=== PATIENT | male | born 1965 | race Caucasian/White ===

== ENCOUNTER → 2017-04-16 | Outpatient (CLI) | payer OTHER ==
[2017-04-16 08:59] LABS: CHLORIDE,CL 107 mmol/L (98-110); SODIUM,NA 142 mmol/L (136-146)
== END ==
LOC: MW.CHRC 08:15
PROVIDERS: ATTEND Family Medicine
DX: R73.03 Prediabetes (principal); E78.00 Pure hypercholesterolemia, unspecified
CPT/HCPCS: 36415; 80053; 80061; 83036

== ENCOUNTER 2018-04-16 10:52 | Day surgery (SDC) | payer OTHER ==
[~2018-04-16 10:52] MED LIST: Lactated Ringers 1,000 ML IV SCH; Lidocaine 2% 5 ML SDV ONE; Midazolam 1 MG/ML 2 ML SDV ONE; Propofol 200 MG/20 ML SDV ONE; fentaNYL 100 MCG/2 ML SDV ONE
--- NOTE | 2018-04-16 11:31 | PCM.PREANE ---
Preanesthetic Assessment - Anesthesia/Transfusion/Family Hx Anesthesia History: Prior Anesthesia Without Reaction Family History of Anesthesia Reaction: No Transfusion History: Unknown - Review of Systems General: No Symptoms Pulmonary: No Symptoms Cardiovascular: No Symptoms Neurological: No Symptoms Other: Reports: None - Physical Assessment NPO Status Date: 04/15/18 O2 Sat by Pulse Oximetry: 96 Respiratory Rate: 16 Vital Signs: Last Vital Signs Temp 36.2 C 04/16/18 11:13 Pulse 70 04/16/18 11:13 Resp 16 04/16/18 11:13 BP 133/86 04/16/18 11:13 Pulse Ox 96 04/16/18 11:13 Height: 1.78 m Weight: 95.254 kg ASA Class: 2 Mental Status: Alert & Oriented x3 Airway Class: Mallampati = 2 Dentition: Reports: Normal Dentition ROM/Head Extension: Full Lungs: Clear to Auscultation, Normal Respiratory Effort Cardiovascular: Regular Rate, Regular Rhythm - Allergies Allergies/Adverse Reactions: Allergies Allergy/AdvReac Type Severity Reaction Status Date / Time No Known Allergies Allergy Verified 04/13/18 09:35 - Anesthesia Plan Pre-Op Medication Ordered: None - Acknowledgements Anesthesia Type Planned: MAC Pt an Appropriate Candidate for the Planned Anesthesia: Yes Alternatives and Risks of Anesthesia Discussed w Pt/Guardian: Yes Pt/Guardian Understands and Agrees with Anesthesia Plan: Yes PreAnesthesia Questionnaire HEENT History: Reports: None Cardiovascular History: Reports: High Cholesterol Respiratory History: Reports: None Gastrointestinal History: Reports: GERD Genitourinary History: Reports: None Musculoskeletal History: Reports: Back Pain, Chronic Neurological History: Reports: Neuropathy, Peripheral Other Neuro History: had numbness in quadracepts but has been exercising and has improvement Psychiatric History: Reports: None Endocrine/Metabolic History: Reports: Obesity/BMI 30+ Hematologic History: Reports: Other (See Below) Other Hematologic History: unsure if given transfusion after thumb amputation Immunologic History: Reports: None Oncologic (Cancer) History: Reports: None Dermatologic History: Reports: Psoriasis Other Dermatologic History: hx of psoriasis, currently has a rash left axillary area - Past Surgical History Head Surgeries/Procedures: Reports: None HEENT Surgical History: Reports: None Cardiovascular Surgical History: Reports: None Respiratory Surgical History: Reports: None GI Surgical History: Reports: Hernia, Abdominal, Hernia, Inguinal Other GI Surgeries/Procedures: umbilical hernia, and right side inguinal hernia Male Surgical History: Reports: None Endocrine Surgical History: Reports: None Neurological Surgical History: Reports: None Musculoskeletal Surgical History: Reports: Other (See Below) Other Musculoskeletal Surgeries/Procedures:: left thumb amputation due to injury Oncologic Surgical History: Reports: None - SUBSTANCE USE Smoking Status *Q: Former Smoker Tobacco Use Within Last Twelve Months: No Second Hand Smoke Exposure: Yes Days Per Week of Alcohol Use: 1 Number of Drinks Per Day: 4 Total Drinks Per Week: 4 Recreational Drug Use History: No - HOME MEDS Home Medications: Home Meds Omeprazole 1 cap PO DAILY PRN 10/21/16 [History] Rosuvastatin Calcium 1 tab PO BEDTIME 10/21/16 [History] Ascorbic Acid [Vitamin C] 1 tab PO DAILY 04/13/18 [History] Calcium Carbonate [Calcium] 250 mg PO DAILY 04/13/18 [History] Fish Oil/[place]-3 Fatty Acids [Fish Oil 1,000 MG] 1,000 mg PO DAILY 04/13/18 [ History] Gluc HCl/Csa/[place] Hy/Hyalur Ac [Glucosamine Chondroitin] 1 tab PO DAILY [History] Magnesium Oxide [Magnesium] 500 mg PO DAILY 04/13/18 [History] Multivitamin [Multivitamins] 1 tab PO DAILY 04/13/18 [History] Potassium 99 mg PO DAILY 04/13/18 [History] Vitamin E 1 tab PO DAILY 04/13/18 [History] - CURRENT (IN HOUSE) MEDS Current Meds: Current Medications Lactated Ringer's (Ringers, Lactated) 1,000 mls @ 125 mls/hr IV ASDIRECTED [facility] Last Admin: 04/16/18 11:06 Dose: 125 mls/hr Discontinued Medications Fentanyl (Sublimaze) Confirm Administered Dose 100 mcg .ROUTE .STK-MED ONE Stop: 04/16/18 10:23 Lidocaine (Xylocaine-Mpf 2%) Confirm Administered Dose 5 ml .ROUTE .STK-MED ONE Stop: 04/16/18 10:22 Midazolam HCl (Versed 1 Mg/Ml) Confirm Administered Dose 2 mg .ROUTE .STK-MED ONE Stop: 04/16/18 10:23 Propofol (Diprivan 20 Ml) Confirm Administered Dose 400 mg .ROUTE .STK-MED ONE Stop: 04/16/18 10:23
--- NOTE | 2018-04-16 12:27 | PCM.OPNOTE ---
- General Post-Op/Procedure Note Date of Surgery/Procedure: 04/16/18 Operative Procedure(s): egd w bx Findings: see dict [id number] Pre Op Diagnosis: heartburn Post-Op Diagnosis: gerd Anesthesia Technique: Moderate Sedation Primary Surgeon: Rene Gann Complications: None Condition: Good
--- NOTE | 2018-04-16 12:52 | PCM.POSTAN ---
POST ANESTHESIA ASSESSMENT - MENTAL STATUS Mental Status: Alert, Oriented - RESPIRATORY Respiratory Status: Respiratory Rate WNL, Airway Patent, O2 Saturation Stable - CARDIOVASCULAR CV Status: Pulse Rate WNL, Blood Pressure Stable - GASTROINTESTINAL GI Status: No Symptoms - POST OP HYDRATION Hydration Status: Adequate & Stable
--- NOTE | 2018-04-16 13:00 | OR ---
SURGEON: Rene Gann MD DATE OF PROCEDURE: 04/16/2018 PREOPERATIVE DIAGNOSIS: Heartburn. POSTOPERATIVE DIAGNOSIS: Gastroesophageal reflux disease. PROCEDURE PERFORMED: Esophagogastroduodenoscopy with biopsy. COMPLICATIONS: None. PROCEDURE IN DETAIL: The patient was taken to the endoscopy room, and with the TAXONOMIST, Diprivan was administered. A well-lubricated EGD scope was gently inserted through the oropharynx, down the esophagus, passing through the gastroesophageal junction, into the stomach. The mucosa was examined upon the passage. Any etiology will be noted. Once in the stomach, we continued to advance to the distal antrum, passed through the pylorus into the second portion of the duodenum. Again, the mucosa was examined for any abnormality and etiology. The scope was then retrieved back to the stomach and then retroflexed to look at the fundus of the stomach. If a biopsy was indicated, we will biopsy the antrum, body, and gastroesophageal junction. The air will be sucked out while the scope is retrieved to reduce the patient's discomfort. The patient tolerated the procedure well. There were no intraoperative complications. Dr. Gann was present through the whole procedure. Prior to surgery, a time-out had been called, the patient identified, procedure identified and antibiotic administered. FINDINGS: 1. The patient is easily sedated with TAXONOMIST and Diprivan. The patient is soundly snoring. 2. The patient's oropharynx and proximal esophagus are free of disease, stricture, or inflammation. Distal esophagus at GE junction at 40 shows minimal salmon-color change, suggests mild acid reflux. Stomach rugae is normal in appearance; and there is no food, blood, ulcer, or bile. There are couple of small polyps, 1 to 2 mm, close to the antrum; and the antrum is normal, and duodenum is grossly normal, and the scope retrieved back to the stomach. Retroflexed look at the fundus of stomach, there is no hiatal hernia. Biopsy done in the antrum, biopsy of one of the polyp in the cardia, biopsy done in the GE junction at 40, and sucked out the gas while the scope was pulling out. The patient tolerated the procedure well. AASHISH / SAVANNAH /[id number]
[2018-04-16 13:15] VITALS: BP 116/79
== END 2018-04-16 13:10 | disposition home or self-care (01) ==
LOC: MW.SDS 10:52
PROVIDERS: ATTEND Surgery
DX: K29.50 Unspecified chronic gastritis without bleeding (principal); K31.7 Polyp of stomach and duodenum; K21.9 Gastro-esophageal reflux disease without esophagitis; E66.9 Obesity, unspecified; Z68.30 Body mass index [BMI] 30.0-30.9, adult; E78.00 Pure hypercholesterolemia, unspecified; Z87.891 Personal history of nicotine dependence; Z79.899 Other long term (current) drug therapy
CPT/HCPCS: 88305; 88312; J2250; J2704; J3010; J7120

== ENCOUNTER 2018-07-16 10:30 | Day surgery (SDC) | payer OTHER ==
[~2018-07-16 10:30] MED LIST changes: +Bupivacaine 25%/EPINEPHrine/PF 30 ML ONE; +Dexamethasone 4 MG/ML 5 ML MDV ONE; +HYDROmorphone 2 MG/ML SDV ONE; +Octyl 2-Cyanoacrylate 1 Tube ONE; +Ondansetron 4 MG/2 ML SDV ONE; +Rocuronium 10 MG/ML 10 ML Syringe ONE; +ceFAZolin 2 GM in Premix Bag 1 BAG IV ONE; +diphenhydrAMINE 50 MG/ML SDV ONE; +fentaNYL 100 MCG/2 ML SDV IVPUSH PRN; -fentaNYL 100 MCG/2 ML SDV ONE; +fentaNYL 250 MCG/5 ML SDV ONE
[2018-07-16] MEDS ORDERED: Succinylcholine 200 MG/10 ML MDV ONE (11:13)
[2018-07-16] MEDS ORDERED: Scopolamine 1.5 MG Transdermal Patch ONE (11:13)
--- NOTE | 2018-07-16 11:35 | PCM.PREANE ---
Preanesthetic Assessment - Anesthesia/Transfusion/Family Hx Anesthesia History: Prior Anesthesia Without Reaction Family History of Anesthesia Reaction: No Transfusion History: No Prior Transfusion(s) Intubation History: Unknown - Review of Systems General: No Symptoms Pulmonary: No Symptoms Cardiovascular: No Symptoms Gastrointestinal: No Symptoms Neurological: No Symptoms Other: Reports: None - Physical Assessment NPO Status Date: 07/15/18 NPO Status Time: 22:00 O2 Sat by Pulse Oximetry: 98 Respiratory Rate: 16 Vital Signs: Last Vital Signs Temp 36.9 C 07/16/18 10:52 Pulse 74 07/16/18 10:52 Resp 16 07/16/18 10:52 BP 145/84 H 07/16/18 10:52 Pulse Ox 98 07/16/18 10:52 Height: 1.78 m Weight: 96.162 kg ASA Class: 3 Mental Status: Alert & Oriented x3 Airway Class: Mallampati = 2 Dentition: Reports: Normal Dentition Thyro-Mental Finger Breadths: 2 Mouth Opening Finger Breadths: 2 ROM/Head Extension: Full Lungs: Clear to Auscultation, Normal Respiratory Effort Cardiovascular: Regular Rate, Regular Rhythm - Allergies Allergies/Adverse Reactions: Allergies Allergy/AdvReac Type Severity Reaction Status Date / Time No Known Allergies Allergy Verified 07/13/18 07:32 - Blood Blood Available: No - Anesthesia Plan Pre-Op Medication Ordered: None - Acknowledgements Anesthesia Type Planned: General Anesthesia Pt an Appropriate Candidate for the Planned Anesthesia: Yes Alternatives and Risks of Anesthesia Discussed w Pt/Guardian: Yes Pt/Guardian Understands and Agrees with Anesthesia Plan: Yes PreAnesthesia Questionnaire HEENT History: Reports: None Cardiovascular History: Reports: High Cholesterol, Other (See Below) (elevated blood pressure without diagnosis of HTN) Respiratory History: Reports: None Gastrointestinal History: Reports: Diverticulosis, GERD Genitourinary History: Reports: None Musculoskeletal History: Reports: None Neurological History: Reports: Neuropathy, Peripheral Psychiatric History: Reports: None Endocrine/Metabolic History: Reports: Obesity/BMI 30+, Other (See Below) ( prediabetes) Hematologic History: Reports: Other (See Below) Other Hematologic History: unsure if given transfusion after thumb amputation Immunologic History: Reports: None Oncologic (Cancer) History: Reports: None Dermatologic History: Reports: Psoriasis - Past Surgical History Head Surgeries/Procedures: Reports: None HEENT Surgical History: Reports: None Cardiovascular Surgical History: Reports: None Respiratory Surgical History: Reports: None GI Surgical History: Reports: Hernia, Abdominal, Hernia, Inguinal Other GI Surgeries/Procedures: umbilical hernia, and right inguinal hernia Male Surgical History: Reports: None Endocrine Surgical History: Reports: None Neurological Surgical History: Reports: None Musculoskeletal Surgical History: Reports: Other (See Below) Other Musculoskeletal Surgeries/Procedures:: left thumb amputation & reattachment due to injury Oncologic Surgical History: Reports: None - SUBSTANCE USE Smoking Status *Q: Former Smoker Tobacco Use Within Last Twelve Months: No Recreational Drug Use History: No - HOME MEDS Home Medications: Home Meds Omeprazole 1 cap PO DAILY PRN 10/21/16 [History] Rosuvastatin Calcium 1 tab PO BEDTIME 10/21/16 [History] Ascorbic Acid [Vitamin C] 1 tab PO DAILY 04/13/18 [History] Calcium Carbonate [Calcium] 250 mg PO DAILY 04/13/18 [History] Fish Oil/[place]-3 Fatty Acids [Fish Oil 1,000 MG] 1,000 mg PO DAILY 04/13/18 [ History] Gluc HCl/Csa/[place] Hy/Hyalur Ac [Glucosamine Chondroitin] 1 tab PO DAILY [History] Magnesium Oxide [Magnesium] 500 mg PO DAILY 04/13/18 [History] Multivitamin [Multivitamins] 1 tab PO DAILY 04/13/18 [History] Potassium 99 mg PO DAILY 04/13/18 [History] Vitamin E 1 tab PO DAILY 04/13/18 [History] - CURRENT (IN HOUSE) MEDS Current Meds: Current Medications Fentanyl (Sublimaze) 50 mcg IVPUSH SEECOMMENT PRN PRN Reason: Pain (moderate 4-6) Lactated Ringer's (Ringers, Lactated) 1,000 mls @ 125 mls/hr IV ASDIRECTED [facility] Last Admin: 07/16/18 11:06 Dose: 125 mls/hr Discontinued Medications Dexamethasone (Dexamethasone) Confirm Administered Dose 20 mg .ROUTE .STK-MED ONE Stop: 07/16/18 09:35 Diphenhydramine HCl (Benadryl) Confirm Administered Dose 50 mg .ROUTE .STK-MED ONE Stop: 07/16/18 09:35 Fentanyl (Sublimaze) Confirm Administered Dose 250 mcg .ROUTE .STK-MED ONE Stop: 07/16/18 09:34 Hydromorphone HCl (Dilaudid) Confirm Administered Dose 2 mg .ROUTE .STK-MED ONE Stop: 07/16/18 09:36 Cefazolin Sodium/Dextrose 2 gm (/ Premix) 50 mls @ 100 mls/hr IV ONETIME ONE Stop: 07/16/18 05:29 Bupivacaine HCl/Epinephrine Bitart (Sensorc Mpf 0.25%-Epi [id number]) Confirm Administered Dose 30 mls @ as directed .ROUTE .STK-MED ONE Stop: 07/16/18 07:48 Acetaminophen (Ofirmev) Confirm Administered Dose 100 mls @ as directed IV .STK- MED ONE Stop: 07/16/18 10:52 Lidocaine (Xylocaine-Mpf 2%) Confirm Administered Dose 5 ml .ROUTE .STK-MED ONE Stop: 07/16/18 09:34 Midazolam HCl (Versed 1 Mg/Ml) Confirm Administered Dose 2 mg .ROUTE .STK-MED ONE Stop: 07/16/18 09:34 Octyl Cyanoacrylate (Dermabond Advance) Confirm Administered Dose 1 applic .ROUTE .STK-MED ONE Stop: 07/16/18 07:48 Ondansetron HCl (Zofran) Confirm Administered Dose 4 mg .ROUTE .STK-MED ONE Stop: 07/16/18 09:34 Propofol (Diprivan 20 Ml) Confirm Administered Dose 200 mg .ROUTE .STK-MED ONE Stop: 07/16/18 09:34 Rocuronium [place] (Zemuron) Confirm Administered Dose 100 mg .ROUTE .STK-MED ONE Stop: 07/16/18 09:34 Scopolamine (Transderm-Scop) Confirm Administered Dose 1.5 mg .ROUTE .STK-MED ONE Stop: 07/16/18 11:14 Succinylcholine Chloride (Quelicin) Confirm Administered Dose 200 mg .ROUTE .STK -MED ONE Stop: 07/16/18 11:14
[2018-07-16] MEDS ORDERED: Glycopyrrolate 0.2 MG/ML SDV ONE ×3 (12:03→12:25)
[2018-07-16] MEDS ORDERED: Ketorolac 30 MG/ML SDV ONE (12:03)
[2018-07-16] MEDS ORDERED: Neostigmine Methylsulfate 1 MG/ML 5 ML Syringe ONE (12:03)
--- NOTE | 2018-07-16 12:44 | PCM.OPNOTE ---
- General Post-Op/Procedure Note Date of Surgery/Procedure: 07/16/18 Operative Procedure(s): lap brii Findings: gb is yellow and green, severe adherence to surrounding organs, chronic cholecystitis; wall is not thickened; [id number] Pre Op Diagnosis: chronic cholecystitis Post-Op Diagnosis: Same Anesthesia Technique: General ET Tube Primary Surgeon: Rene Gann Pathology: sent Complications: None Condition: Good Free Text/Narrative:: Intake & Output 07/15/18 07/16/18 07/16/18 22:59 06:59 14:59 Output Total 180 Balance -180
--- NOTE | 2018-07-16 14:32 | OR ---
SURGEON: Rene Gann MD DATE OF PROCEDURE: 07/16/2018 PREOPERATIVE DIAGNOSIS: Gross dyskinesia. POSTOPERATIVE DIAGNOSIS: Chronic cholecystitis. PROCEDURE PERFORMED: Laparoscopic cholecystectomy. COMPLICATION: None. FINDINGS: Gallbladder is distended, yellow and green, and adhesions to surrounding omentum and organs consistent with chronic situation and chronic cholecystitis. PROCEDURE NOTE: The patient was taken to the operating room and placed in the supine position. After the intubation of general endotracheal anesthesia, the patient's abdomen was prepped and draped in the usual sterile fashion. Using [employer], a 12 mm trocar was placed supraumbilically and then followed with pneumoperitoneum. A 5 mm trocar was placed in the epigastrium and two 5 mm trocars placed in the right upper quadrant. The placement of the last three trocars was done under direct video supervision. Upon gaining entrance to the abdominal cavity, an extensive examination was then performed. The gallbladder was located and identified and retracted to the dome of the liver at the triangle of [place]. The cystic duct was clipped three more times and then using the endoscopic clip, was transected with placement of the endoscopic clip and transection was performed with care, ensuring the posterior prong of the instruments were clearly visualized prior to exercising the procedure. The gallbladder was dissected using electrocautery out of the liver bed and then removed using endoscopic bag through the umbilical site. The gallbladder was removed en bloc and there was no bile spillage and this was then followed with extensive irrigation until the bile was clear from blood and bile. The trocars were then removed under direct video supervision. The 12 mm umbilical site was then closed with deep stitches using 0 Vicryl followed with proximal stitches using 3-0 Vicryl and Dermabond. The other three trocar sites were closed with 3-0 Vicryl followed with approximation of skin with Dermabond. The patient was then awakened and extubated and transferred to the recovery room in hemodynamically stable condition. At the conclusion of the surgery, before closing the abdominal wound, instrument count and sponge count were done and were correct. The patient tolerated the procedure well and there were no intraoperative complications. Dr. Gann was present through the whole procedure. Just before surgery, a timeout was called. The patient was identified and procedure identified and procedure started. At the end of the surgery, Surgicel was applied to assist in hemostasis. As always, thank you for the kind referral. AASHISH / SAVANNAH /[id number]
[2018-07-16] MEDS ORDERED: Acetaminophen/oxyCODONE 325-5 MG Tab PO ONE (15:07)
--- NOTE | 2018-07-16 15:23 | PCM48HPAN ---
Post Anesthesia Note - EVALUATION WITHIN 48HRS OF ANESTHETIC Vital Signs in Normal Range: Yes Patient Participated in Evaluation: Yes Respiratory Function Stable: Yes Airway Patent: Yes Cardiovascular Function Stable: Yes Hydration Status Stable: Yes Pain Control Satisfactory: Yes Nausea and Vomiting Control Satisfactory: Yes Mental Status Recovered: Yes Resp Rate: 10 - COMMENTS/OBSERVATIONS Free Text/Narrative:: no anesthesia problems
[2018-07-16 15:28] VITALS: BP 107/64
== END 2018-07-16 15:15 | disposition home or self-care (01) ==
LOC: MW.SDS 10:30
PROVIDERS: ATTEND Surgery
DX: K81.1 Chronic cholecystitis (principal); R07.9 Chest pain, unspecified; E78.00 Pure hypercholesterolemia, unspecified; R03.0 Elevated blood-pressure reading, without diagnosis of hypertension; K21.9 Gastro-esophageal reflux disease without esophagitis; R73.03 Prediabetes; J04.0 Acute laryngitis; L40.9 Psoriasis, unspecified; E66.9 Obesity, unspecified; Z68.30 Body mass index [BMI] 30.0-30.9, adult; Z79.899 Other long term (current) drug therapy; Z87.891 Personal history of nicotine dependence
CPT/HCPCS: 47562; A9270; J0131; J0330; J1100; J1170; J1200; J1885; J2250; J2405; J2704; J3010; J3490; J7120

== ENCOUNTER 2024-09-04 18:55 | Emergency (ER) | payer BC ==
[2024-09-04] MEDS ORDERED: Bacitracin Oint 1 GM U/D Packet ONE (21:51)
[2024-09-04 22:13] VITALS: BP 156/78; PULSE 82
== END 2024-09-04 22:13 | disposition home or self-care (01) ==
LOC: MW.ED 18:55
DX: T20.10XA Burn of first degree of head, face, and neck, unspecified site, initial encounter (principal); T59.811A Toxic effect of smoke, accidental (unintentional), initial encounter; K21.9 Gastro-esophageal reflux disease without esophagitis; E66.9 Obesity, unspecified; Z79.899 Other long term (current) drug therapy; Z68.31 Body mass index [BMI] 31.0-31.9, adult; X58.XXXA Exposure to other specified factors, initial encounter
CPT/HCPCS: 71045; 71045-26; 99284